=== PATIENT | male | born 1955 | race Caucasian/White ===

== ENCOUNTER → 2016-03-13 | Outpatient (CLI) | payer BC ==
[~2016-03-13] MED LIST: ASPIRIN81 M1 PO; BELVIQ10 M1 PO; CEPHALEXIN500 M1 PO; LEVAQUIN750 M1 PO; LISINOPRIL AND1 TAB PO; Motrin,Rufen800 MG PO; NEXIUM40 MG PO; OMEPRAZOLE20 M2 PO; OMEPRAZOLE40 MG PO; TAMIFLU 75MG CA75 MG PO; ZESTRIL5 MG PO
== END | disposition home or self-care (01) ==
LOC: ORTHO 10:47
DX: M25.561 Pain in right knee (principal); M79.89 Other specified soft tissue disorders

== ENCOUNTER → 2018-05-11 | Outpatient (CLI) | payer OTHER ==
[~2018-05-11] MED LIST changes: +NORCO 5-325 TA1 EACH PO; +ZOFRAN4 MG PO
== END | disposition home or self-care (01) ==
LOC: LAB 10:28
DX: R73.9 Hyperglycemia, unspecified (principal)

== ENCOUNTER → 2018-06-02 | Day surgery (SDC) | payer OTHER ==
[2018-05-04 13:15] VITALS: BP 137/75
[~2018-06-02] VITALS: Ht 177.8 cm; Wt 104.3 kg
[2018-06-02 06:49] VITALS: BP 142/84
[2018-06-02 08:55] VITALS: BP 118/59
[2018-06-02 09:10] VITALS: BP 123/68
[2018-06-02 09:25] VITALS: BP 129/74
[2018-06-02 09:40] VITALS: BP 128/82
[2018-06-02 09:55] VITALS: BP 130/79
== END | disposition home or self-care (01) ==
LOC: SDC 05-04 10:15
DX: S83.242A Other tear of medial meniscus, current injury, left knee, initial encounter (principal); X58.XXXA Exposure to other specified factors, initial encounter; Y93.89 Activity, other specified; Y92.89 Other specified places as the place of occurrence of the external cause; Y99.8 Other external cause status; M22.42 Chondromalacia patellae, left knee; I10 Essential (primary) hypertension; K21.9 Gastro-esophageal reflux disease without esophagitis; E66.9 Obesity, unspecified; Z91.030 Bee allergy status; Z79.899 Other long term (current) drug therapy; Z98.890 Other specified postprocedural states; Z87.891 Personal history of nicotine dependence; Z68.33 Body mass index [BMI] 33.0-33.9, adult; Z79.82 Long term (current) use of aspirin

== ENCOUNTER → 2019-11-07 | Outpatient (CLI) | payer OTHER | END | disposition home or self-care (01) | LOC: ORTHO 14:26 → RAD 14:26 | PROVIDERS: ATTEND Psychiatry & Neurology Psychiatry | DX: M25.561 Pain in right knee (principal); M25.562 Pain in left knee ==

== ENCOUNTER → 2019-12-18 | Outpatient (CLI) | payer OTHER | END | disposition home or self-care (01) | LOC: ORTHO 01:32 | PROVIDERS: ATTEND Orthopaedic Surgery | DX: M89.8X6 Other specified disorders of bone, lower leg (principal) ==

== ENCOUNTER → 2020-04-04 | Outpatient (CLI) | payer OTHER ==
[2020-04-04 10:28] LABS: BASO % 0.2 % (0.0-1.0); EOS # 0.2 10*3/uL (0.0-0.4); EOS % 4.2 % (1.0-4.0); LYMPH # 1.2 10*3/uL (1.3-4.4); MEAN CELL VOLUME 87.9 fl (80.0-94.0); MEAN CORPUSCULAR HGB 30.3 pg (27.0-31.0); MEAN CORPUSCULAR HGB CONC 34.4 g/dl (33.0-37.0); MEAN PLATELET VOLUME 10.3 fl (9.6-12.3); MONO # 0.4 10*3/uL (0.1-1.0); MONO % 8.9 % (3.0-9.0); NEUT # 3.1 10*3/uL (2.3-7.9); NEUT % 61.5 % (47.0-73.0); PLATELET COUNT AUTOMATED 200 10*3/uL (130-400); RED BLOOD COUNT 5.12 10*6/uL (4.50-5.90); RED CELL DISTRI WIDTH 12.9 % (0-14.5)
[2020-04-04 10:38] LABS: ALKALINE PHOSPHATASE 58 U/L (45-117); BUN 18 mg/dl (7-24); CHLORIDE 106 mmol/L (98-107); CHOLESTEROL 177 mg/dL (<200); CREATININE 1.01 mg/dL (0.70-1.30); HDL CHOLESTEROL 58 mg/dl (40-60); LDL CHOLESTEROL 110 mg/dL (9-159); POTASSIUM 4.1 mmol/L (3.5-5.1); SGOT/AST 19 IU/L (3-35); SGPT/ALT 41 U/L (12-78); SODIUM 140 mmol/L (136-145); TOTAL PROTEIN 7.6 gm/dL (6.4-8.2); TRIGLYCERIDES 45 mg/dl (<150); VLDL CHOLESTEROL 9 mg/dL (6-40)
== END | disposition home or self-care (01) ==
LOC: LAB 08:32
PROVIDERS: ATTEND Internal Medicine
DX: E11.65 Type 2 diabetes mellitus with hyperglycemia (principal); N40.1 Benign prostatic hyperplasia with lower urinary tract symptoms; R35.1 Nocturia; G47.33 Obstructive sleep apnea (adult) (pediatric)

== ENCOUNTER → 2020-04-26 | Outpatient (CLI) | payer OTHER | END | disposition home or self-care (01) | LOC: ORTHO 00:46 | PROVIDERS: ATTEND Orthopaedic Surgery | DX: M19.042 Primary osteoarthritis, left hand (principal) ==

== ENCOUNTER → 2020-05-06 | Outpatient (CLI) | payer OTHER | END | disposition home or self-care (01) | LOC: CT 13:58 | PROVIDERS: ATTEND Orthopaedic Surgery | DX: M17.0 Bilateral primary osteoarthritis of knee (principal); M85.661 Other cyst of bone, right lower leg; M25.861 Other specified joint disorders, right knee; M76.52 Patellar tendinitis, left knee ==

== ENCOUNTER → 2021-04-04 | Outpatient (CLI) | payer MEDICARE ==
[~2021-04-04] MED LIST changes: +DOCUSATE SOD100 MG PO; +NEXIUM20 M2 PO; +Percocet 325 MG1 TAB PO; +VITAMIN D350 MC2 PO
[2021-04-04 12:37] LABS: BASO % 0.3 % (0.0-1.0); EOS # 0.2 10*3/uL (0.0-0.4); EOS % 2.3 % (1.0-4.0); HEMATOCRIT 47.3 % (42.0-52.0); LYMPH # 1.8 10*3/uL (1.3-4.4); LYMPH % 25.8 % (27.0-41.0); MEAN CELL VOLUME 86.8 fl (80.0-94.0); MEAN CORPUSCULAR HGB 30.3 pg (27.0-31.0); MEAN CORPUSCULAR HGB CONC 34.9 g/dl (33.0-37.0); MEAN PLATELET VOLUME 9.7 fl (9.6-12.3); MONO # 0.5 10*3/uL (0.1-1.0); MONO % 7.4 % (3.0-9.0); NEUT # 4.4 10*3/uL (2.3-7.9); NEUT % 64.1 % (47.0-73.0); PLATELET COUNT AUTOMATED 216 10*3/uL (130-400); RED BLOOD COUNT 5.45 10*6/uL (4.50-5.90); RED CELL DISTRI WIDTH 12.9 % (0-14.5); WHITE BLOOD COUNT 6.9 10*3/uL (4.8-10.8)
[2021-04-04 12:56] LABS: ALKALINE PHOSPHATASE 63 U/L (45-117); BUN 18 mg/dl (7-24); CHLORIDE 102 mmol/L (98-107); CHOLESTEROL 191 mg/dL (<200); CREATININE 1.01 mg/dL (0.70-1.30); LDL CHOLESTEROL 119 mg/dL (9-159); POTASSIUM 3.6 mmol/L (3.5-5.1); SGOT/AST 16 IU/L (3-35); SGPT/ALT 36 U/L (12-78); SODIUM 136 mmol/L (136-145); TOTAL PROTEIN 8.3 gm/dL (6.4-8.2); TRIGLYCERIDES 71 mg/dl (<150)
[2021-04-05 10:07] LABS: CREATININE,URINE 98.2 mg/dL (Not Estab.)
== END | disposition home or self-care (01) ==
LOC: LAB 10:49
PROVIDERS: ATTEND Internal Medicine
DX: E11.9 Type 2 diabetes mellitus without complications (principal); G47.33 Obstructive sleep apnea (adult) (pediatric); N40.1 Benign prostatic hyperplasia with lower urinary tract symptoms; R35.1 Nocturia; R97.20 Elevated prostate specific antigen [PSA]

== ENCOUNTER 2021-04-08 01:47 | Inpatient (IN) | payer MEDICARE ==
[2021-04-04 13:40] VITALS: BP 157/90
[~2021-04-08] VITALS: Ht 175.2 cm; Wt 93.0 kg
[2021-04-08] VITALS (10 sets, daily range): BP systolic 102–174; BP diastolic 49–86
[~2021-04-08 01:47] MED LIST changes: -DOCUSATE SOD100 MG PO; -Percocet 325 MG1 TAB PO; -VITAMIN D350 MC2 PO
[2021-04-09] VITALS: BP 136/64
[2021-04-09 06:15] LABS: BASO % 0.1 % (0.0-1.0); HEMATOCRIT 40.6 % (42.0-52.0); LYMPH # 1.1 10*3/uL (1.3-4.4); MEAN CELL VOLUME 87.7 fl (80.0-94.0); MEAN CORPUSCULAR HGB 30.2 pg (27.0-31.0); MEAN CORPUSCULAR HGB CONC 34.5 g/dl (33.0-37.0); MEAN PLATELET VOLUME 9.9 fl (9.6-12.3); MONO # 1.3 10*3/uL (0.1-1.0); MONO % 8.5 % (3.0-9.0); NEUT % 83.8 % (47.0-73.0); PLATELET COUNT AUTOMATED 180 10*3/uL (130-400); RED BLOOD COUNT 4.63 10*6/uL (4.50-5.90); RED CELL DISTRI WIDTH 12.8 % (0-14.5); WHITE BLOOD COUNT 15.5 10*3/uL (4.8-10.8)
[2021-04-09 06:27] LABS: INTERNATIONAL NORM RATIO 1.1 (2.0-3.5)
[2021-04-09 06:29] LABS: BUN 15 mg/dl (7-24); CHLORIDE 103 mmol/L (98-107); CREATININE 1.12 mg/dL (0.70-1.30); POTASSIUM 4.1 mmol/L (3.5-5.1); SODIUM 135 mmol/L (136-145)
[2021-04-09 06:34] LABS: CHOLESTEROL 159 mg/dL (<200); FREE T4 1.14 ng/dl (0.76-1.46); LDL CHOLESTEROL 95 mg/dL (9-159); TRIGLYCERIDES 40 mg/dl (<150)
[2021-04-09 06:48] LABS: VITAMIN D, 25-HYDROXY 47.4 ng/mL (30-100)
[2021-04-09 08:00] VITALS: BP 148/82
[2021-04-09 11:19] VITALS: BP 156/77
[2021-04-09 11:27] LABS: BILIRUBIN Negative (Negative); BLOOD 3+ (Negative); CLARITY Cloudy (Clear); COLOR Yellow (Yellow); GLUCOSE Trace (Negative); KETONE Negative (Negative); LEUKO ESTERASE 3+ (Negative); NITRITE Negative (Negative); PH 6.5 (4.5-8.0); SPECIFIC GRAVITY 1.015 (1.001-1.030); UROBILINOGEN 0.2 E.U./dl (0.0-1.0)
[2021-04-09 11:35] LABS: RBC TNTC rbc/hpf (0-2)
[2021-04-09 16:00] VITALS: BP 175/104
[2021-04-09 20:00] VITALS: BP 160/78
[2021-04-10] VITALS: BP 150/84
[2021-04-10 05:40] LABS: BUN 11 mg/dl (7-24); CHLORIDE 98 mmol/L (98-107); CREATININE 0.99 mg/dL (0.70-1.30); SODIUM 132 mmol/L (136-145)
[2021-04-10 06:04] LABS: HEMATOCRIT 40.3 % (42.0-52.0); MEAN CELL VOLUME 89.2 fl (80.0-94.0); MEAN CORPUSCULAR HGB 30.8 pg (27.0-31.0); MEAN CORPUSCULAR HGB CONC 34.5 g/dl (33.0-37.0); MEAN PLATELET VOLUME 10.7 fl (9.6-12.3); RED BLOOD COUNT 4.52 10*6/uL (4.50-5.90); RED CELL DISTRI WIDTH 12.5 % (0-14.5); WHITE BLOOD COUNT 12.3 10*3/uL (4.8-10.8)
[2021-04-10 06:13] LABS: PLATELET COUNT AUTOMATED 109 10*3/uL (130-400)
[2021-04-10 06:14] LABS: MANUAL DIFF REFLEX YES
[2021-04-10 07:28] LABS: PLATELET SUFFICIENCY LOW (NORMAL); TOTAL CELLS COUNTED 100 #CELLS
[2021-04-10 08:00] VITALS: BP 126/78
[2021-04-10 12:00] VITALS: BP 112/69
[2021-04-10 16:00] VITALS: BP 117/60
[2021-04-10 20:00] VITALS: BP 127/71
[2021-04-11] VITALS: BP 126/75
[2021-04-11 05:46] LABS: BUN 12 mg/dl (7-24); CHLORIDE 97 mmol/L (98-107); CREATININE 0.98 mg/dL (0.70-1.30); POTASSIUM 3.8 mmol/L (3.5-5.1); SODIUM 131 mmol/L (136-145)
[2021-04-11 05:54] LABS: BASO % 0.1 % (0.0-1.0); EOS # 0.1 10*3/uL (0.0-0.4); EOS % 1.4 % (1.0-4.0); HEMATOCRIT 38.1 % (42.0-52.0); LYMPH # 1.2 10*3/uL (1.3-4.4); LYMPH % 12.1 % (27.0-41.0); MEAN CELL VOLUME 86.8 fl (80.0-94.0); MEAN CORPUSCULAR HGB 30.5 pg (27.0-31.0); MEAN CORPUSCULAR HGB CONC 35.2 g/dl (33.0-37.0); MEAN PLATELET VOLUME 10.3 fl (9.6-12.3); MONO # 1.1 10*3/uL (0.1-1.0); MONO % 10.8 % (3.0-9.0); NEUT # 7.7 10*3/uL (2.3-7.9); NEUT % 75.3 % (47.0-73.0); PLATELET COUNT AUTOMATED 126 10*3/uL (130-400); RED BLOOD COUNT 4.39 10*6/uL (4.50-5.90); RED CELL DISTRI WIDTH 12.3 % (0-14.5); WHITE BLOOD COUNT 10.2 10*3/uL (4.8-10.8)
[2021-04-11 08:00] VITALS: BP 122/82
[2021-04-11 12:00] VITALS: BP 122/80
[2021-04-11 16:00] VITALS: BP 113/72
[2021-04-11 20:00] VITALS: BP 127/70
[2021-04-12] VITALS: BP 132/71
[2021-04-12 08:00] VITALS: BP 140/74
[2021-04-12] MEDS ORDERED: VITAMIN D350 MC2 PO (09:34)
[2021-04-12] MEDS ORDERED: DOCUSATE SOD100 MG PO (09:34)
[2021-04-12] MEDS ORDERED: Percocet 325 MG1 TAB PO (09:34)
== END 2021-04-12 11:21 | disposition home or self-care (01) | DRG 462 ==
LOC: SDC 01:47 → 5E 08:03 → SDC 13:15 → 5E 04-12 11:21
PROVIDERS: Internal Medicine; Orthopaedic Surgery; ADMIT Student in an Organized Health Care Education/Training Program; ATTEND Student in an Organized Health Care Education/Training Program
PROC: 0SRD0J9 Replacement of Left Knee Joint with Synthetic Substitute, Cemented, Open Approach (ICD-10-PCS; principal; 2021-04-08)
PROC: 0SRC0J9 Replacement of Right Knee Joint with Synthetic Substitute, Cemented, Open Approach (ICD-10-PCS; 2021-04-08)
PROC: 3E0T3BZ Introduction of Anesthetic Agent into Peripheral Nerves and Plexi, Percutaneous Approach (ICD-10-PCS; 2021-04-08)
PROC: 3E0T33Z Introduction of Anti-inflammatory into Peripheral Nerves and Plexi, Percutaneous Approach (ICD-10-PCS; 2021-04-08)
DX: M17.0 Bilateral primary osteoarthritis of knee (principal); E87.1 Hypo-osmolality and hyponatremia; N39.0 Urinary tract infection, site not specified; Z20.822 Contact with and (suspected) exposure to COVID-19; G89.18 Other acute postprocedural pain; I10 Essential (primary) hypertension; K21.9 Gastro-esophageal reflux disease without esophagitis; R73.9 Hyperglycemia, unspecified; D64.9 Anemia, unspecified; E87.8 Other disorders of electrolyte and fluid balance, not elsewhere classified; Z68.30 Body mass index [BMI] 30.0-30.9, adult; Z91.030 Bee allergy status

== ENCOUNTER → 2021-04-21 | Outpatient (CLI) | payer MEDICARE ==
[~2021-04-21] MED LIST changes: +DOCUSATE SOD100 MG PO; +Percocet 325 MG1 TAB PO; +VITAMIN D350 MC2 PO
== END | disposition home or self-care (01) ==
LOC: ORTHO 00:26
PROVIDERS: ATTEND Orthopaedic Surgery
DX: Z96.653 Presence of artificial knee joint, bilateral (principal)

== ENCOUNTER → 2021-05-23 | Outpatient (CLI) | payer MEDICARE | END | disposition home or self-care (01) | LOC: ORTHO 01:01 | PROVIDERS: ATTEND Orthopaedic Surgery | DX: M17.0 Bilateral primary osteoarthritis of knee (principal); Z96.653 Presence of artificial knee joint, bilateral ==

== ENCOUNTER → 2021-07-16 | Outpatient (CLI) | payer MEDICARE | END | disposition home or self-care (01) | LOC: ORTHO 00:11 | PROVIDERS: ATTEND Orthopaedic Surgery | DX: M25.461 Effusion, right knee (principal); Z47.1 Aftercare following joint replacement surgery ==

== ENCOUNTER → 2021-10-22 | Outpatient (CLI) | payer MEDICARE | END | disposition home or self-care (01) | LOC: ORTHO 04:32 | PROVIDERS: ATTEND Orthopaedic Surgery | DX: Z47.1 Aftercare following joint replacement surgery (principal) ==

== ENCOUNTER → 2022-04-22 | Outpatient (CLI) | payer MEDICARE | END | disposition home or self-care (01) | LOC: ORTHO 00:34 | PROVIDERS: ATTEND Orthopaedic Surgery | DX: M25.462 Effusion, left knee (principal); M25.461 Effusion, right knee; Z96.653 Presence of artificial knee joint, bilateral ==

== ENCOUNTER → 2023-04-21 | Outpatient (CLI) | payer MEDICARE ==
[~2023-04-21] MED LIST changes: +EPIPEN 2-P0.3 MG/0.3 IJ
== END | disposition home or self-care (01) ==
LOC: ORTHO 03:38
PROVIDERS: ATTEND Orthopaedic Surgery
DX: Z96.653 Presence of artificial knee joint, bilateral (principal)

== ENCOUNTER 2023-04-24 12:59 | Emergency (ER) | payer MEDICARE ==
[~2023-04-24] VITALS: Ht 177.8 cm; Wt 99.8 kg
[~2023-04-24 12:59] MED LIST changes: -EPIPEN 2-P0.3 MG/0.3 IJ
[2023-04-24] MEDS ORDERED: methylPREDNISolone sod succ 125 MG VIAL IV ONE (13:15)
[2023-04-24] MEDS ORDERED: EPINEPHrine Hydrochloride 1 MG/ML AMP IM ONE (13:15)
[2023-04-24] MEDS ORDERED: FAMOTIDINE 50 ML IV ONE (13:15)
[2023-04-24] MEDS ORDERED: diphenhydrAMINE hydrochloride 50 MG/ML VIAL IV ONE (13:15)
[2023-04-24 13:32] LABS: BASO % 0.2 % (0.0-1.0); EOS # 0.1 10*3/uL (0.0-0.4); HEMATOCRIT 45.6 % (42.0-52.0); LYMPH # 2.1 10*3/uL (1.3-4.4); LYMPH % 21.7 % (27.0-41.0); MEAN CELL VOLUME 88.2 fl (80.0-94.0); MEAN CORPUSCULAR HGB 30.4 pg (27.0-31.0); MEAN CORPUSCULAR HGB CONC 34.4 g/dl (33.0-37.0); MEAN PLATELET VOLUME 9.9 fl (9.6-12.3); MONO # 0.6 10*3/uL (0.1-1.0); MONO % 6.8 % (3.0-9.0); NEUT # 6.6 10*3/uL (2.3-7.9); NEUT % 70.1 % (47.0-73.0); PLATELET COUNT AUTOMATED 209 10*3/uL (130-400); RED BLOOD COUNT 5.17 10*6/uL (4.50-5.90); RED CELL DISTRI WIDTH 12.5 % (0-14.5); WHITE BLOOD COUNT 9.4 10*3/uL (4.8-10.8)
[2023-04-24 13:51] LABS: ALKALINE PHOSPHATASE 63 U/L (46-116); BUN 18 mg/dl (9-23); CHLORIDE 102 mmol/L (98-107); POTASSIUM 3.8 mmol/L (3.4-5.1); SGPT/ALT 27 U/L (5-49); TOTAL PROTEIN 7.4 gm/dL (6.0-8.0)
[2023-04-24] MEDS ORDERED: EPIPEN 2-P0.3 MG/0.3 IJ (14:09)
== END 2023-04-24 15:00 | disposition home or self-care (01) ==
LOC: ED 12:59
PROVIDERS: Internal Medicine
DX: T78.2XXA Anaphylactic shock, unspecified, initial encounter (principal); K21.9 Gastro-esophageal reflux disease without esophagitis; I10 Essential (primary) hypertension; Z91.030 Bee allergy status; Z98.890 Other specified postprocedural states; Z96.653 Presence of artificial knee joint, bilateral